=== PATIENT | female | born 1965 | race Caucasian/White ===

== ENCOUNTER 2022-07-05 07:08 | Emergency (ER) | payer OTHER ==
[~2022-07-05] VITALS: Ht 162.6 cm; Wt 77.1 kg
[2022-07-05] MEDS ORDERED: ONDANSETRON HCL/PF 4 MG/2 ML VIAL ONE (07:23)
[2022-07-05] MEDS ORDERED: ONDANSETRON HCL/PF 4 MG/2 ML VIAL IVP ONE (07:30)
[2022-07-05] MEDS ORDERED: IV NS 0.9% 1,000 ML BAG IV ONE (07:30)
[2022-07-05 07:46] LABS: BASOPHILS % (AUTO) 0.3 % (0.0-2.0); EOSINOPHILS % (AUTO) 0.2 % (0.0-6.0); HEMATOCRIT 42 % (33-45); HEMOGLOBIN 13.7 g/dL (11.5-14.8); LYMPHOCYTES # (AUTO) 1.6 K/uL (0.8-4.8); LYMPHOCYTES % (AUTO) 11.4 % (20.0-44.0); MEAN CORPUSCULAR HGB CONC 33 g/dl (31.0-36.0); MEAN CORPUSCULAR VOLUME 77 fL (82-100); MONOCYTES # (AUTO) 0.4 K/uL (0.1-1.30); MONOCYTES % (AUTO) 2.9 % (2.0-12.0); NEUTROPHILS # (AUTO) 12.2 K/uL (1.8-8.9); NEUTROPHILS % (AUTO) 85.2 % (43.0-81.0); PLATELET COUNT (AUTO) 285 K/uL (150-450); RED BLOOD CELL COUNT(AUTO) 5.47 MIL/uL (4.0-5.2); WHITE BLOOD COUNT (AUTO) 14.3 K/uL (4.3-11.0)
--- NOTE | 2022-07-05 08:00 | NUR ---
PT IN BED, RESPONDS WHEN CALLED BY HER NAME. ANSWERS YES/NO QUESTIONS. NOT IN ACUTE DISTRESS.
[2022-07-05 08:06] LABS: CALCIUM, SERUM 9.2 mg/dL (8.5-10.1); CREATININE 0.8 mg/dL (0.6-1.3); POTASSIUM 3.2 mmol/L (3.5-5.1)
[2022-07-05 08:11] LABS: ALBUMIN 4.2 g/dL (3.4-5.0); BILIRUBIN,DIRECT 0.1 mg/dL (0.0-0.2); BILIRUBIN,TOTAL 0.4 mg/dL (0.2-1.0); TOTAL PROTEIN, SERUM 9.1 g/dL (6.4-8.2)
--- NOTE | 2022-07-05 08:34 | NUR ---
URINE COLLECTED AND SENT
--- NOTE | 2022-07-05 08:35 | NUR ---
PT TAKEN TO CT VIA [facility]
[2022-07-05] MEDS ORDERED: LEVETIRACETAM (500MG) 1,000 MG in IV NS 0.9% 100 ML IV SCH (09:00)
[2022-07-05] MEDS ORDERED: NICARDIPINE HCL 40 MG in IV NS 0.9% 184 ML IV PRN (09:00)
--- NOTE | 2022-07-05 09:08 | NUR ---
ADDITIONAL IVS ESTABLIHSED R HAND 20G, L AC 20G.
[2022-07-05] MEDS ORDERED: LORAZEPAM INJ 2 MG/ML VIAL ONE (09:14)
--- NOTE | 2022-07-05 09:25 | NUR ---
ADDENDUM: Intravenous End Time Documentation: Keppra 1000 mg in 100 cc NS : start time: 924 ; end time: 5 : IV site: PIV LH # 20 Port # 1 Nicardipine drip (cardene-nacl 20mg/200 ml) - start time: 924 ;IV site: PIV LH # 20 , PORT # 2 Infusing during transfer to [facility]
[2022-07-05 09:30] LABS: BILIRUBIN,URINE NEGATIVE (NEGATIVE); COLOR,URINE YELLOW (YELLOW); LEUKOCYTE ESTERASE ,URINE NEGATIVE (NEGATIVE); NITRITE, URINE NEGATIVE (NEGATIVE); PROTEIN,URINE 100 mg/dl (NEGATIVE); UGLUCOSE 250 MG/DL mg/dL (NEGATIVE); UROBILINOGEN,URINE 0.2 EU/dL (0.2)
[2022-07-05] MEDS ORDERED: NICARDIPINE IN NACL, ISO-OSM 200 ML IV PRN (09:30)
[2022-07-05] MEDS ORDERED: LORAZEPAM INJ 2 MG/ML VIAL IV ONE (09:30)
--- NOTE | 2022-07-05 09:39 | NUR ---
RAPID COVID SWAB DONE AND SENT TO LAB
--- NOTE | 2022-07-05 09:40 | NUR ---
FAXED FACE SHEET TO [phone] [facility].
--- NOTE | 2022-07-05 09:44 | NUR ---
[facility] [phone] DR. MORRIS SPEAKING WITH DR. LEWIS PLEASE CALL [phone] FOR REPORT. PT GOING TO ROOM 3757
[2022-07-05 09:55] LABS: BACTERIA,URINE Few /HPF (None Seen); SQUAMOUS EPITHELIAL CELL,UR Few /HPF (None Seen)
--- NOTE | 2022-07-05 09:55 | NUR ---
BP-143/83, HR-104, R-18, [id number]% AT 3L N/C
--- NOTE | 2022-07-05 09:59 | NUR ---
CALLED [facility] ICU FOR REPORT. 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
[2022-07-05 10:16] VITALS: BP 164/120
--- NOTE | 2022-07-05 10:17 | NUR ---
PATIENT WILL BE TRANSFERRED TO [facility] V[facility] WITH SANJANA MCINTOSH RN .
--- NOTE | 2022-07-05 10:18 | NUR ---
VIELKA W/ GLORIA, [employer]USTICS LOADER AT [facility]
--- NOTE | 2022-07-05 10:20 | NUR ---
PT'S SISTER SPOKE W/ MEHNAZ CASTRO AT [facility].
--- NOTE | 2022-07-05 10:31 | NUR ---
EMT AND CC RN AT BEDSIDE TO PICKUP PT
--- NOTE | 2022-07-05 10:39 | NUR ---
PT TRANSFERRED TO [facility] VIA [facility] TRAN[facility]ORT. BEDSIDE ENDORSEMENT GIVEN TO EMT AND RN PICKING UP PT. FAMILY TO FOLLOW.
== END 2022-07-05 10:51 | disposition short-term general hospital (02) ==
LOC: ER 07:10
DX: I60.9 Nontraumatic subarachnoid hemorrhage, unspecified (principal); R56.9 Unspecified convulsions; R41.0 Disorientation, unspecified; R00.0 Tachycardia, unspecified; R03.0 Elevated blood-pressure reading, without diagnosis of hypertension; Z20.822 Contact with and (suspected) exposure to COVID-19
CPT/HCPCS: 99291; 96365; 96368; 96375; 93005; 70450; 85025; 80048; 83690; 80076; 81001; 36415; 85730; 87426; 80320; 80307; J2060; J2405; J7030 ×2; J7050; J1953; C9803; G0480